=== PATIENT | female | born 1955 | race Caucasian/White ===

== ENCOUNTER 2020-12-01 16:55 | Emergency (ER) | payer MEDICARE, BC ==
--- NOTE | 2020-12-01 17:04 | EDM.PDOC ---
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 Home Meds: Home Meds Losartan/Hydrochlorothiazide [Losartan-HCTZ 100-25 MG] 1 tab PO DAILY 12/01/20 [History] dilTIAZem HCL [Cartia Xt] 120 mg PO DAILY 12/01/20 [History] glipiZIDE [Glipizide ER] 10 mg PO DAILY 12/01/20 [History] Review of Systems - Review of Systems Review Of Systems: See Below Constitutional: Reports: No Symptoms Eyes: Reports: No Symptoms Ears: Reports: No Symptoms Nose: Reports: No Symptoms Mouth/Throat: Reports: No Symptoms Respiratory: Reports: No Symptoms Cardiovascular: Reports: No Symptoms GI/Abdominal: Reports: No Symptoms Genitourinary: Reports: No Symptoms Musculoskeletal: Reports: Foot Pain, Joint Swelling Skin: Reports: No Symptoms Neurological: Reports: No Symptoms Psychiatric: Reports: No Symptoms ED EXAM, GENERAL - Physical Exam Exam: See Below Exam Limited By: No Limitations General Appearance: Alert, WD/WN Respiratory/Chest: No Accessory Muscle Use Extremities: Other (1+ swell and 1+ tender over 5th MT head with no ecchymosis, mild tender over L lateral malleolus, deltoid lig with no swell and no tenderness, skin intact) Departure - Departure Time of Disposition: 17:49 Disposition: Home, Self-Care 01 Condition: Good Clinical Impression: Sprain of left ankle Fracture of metatarsal of left foot, closed Qualifiers: Encounter type: initial encounter Metatarsal bone: fifth Fracture alignment: nondisplaced Qualified Code(s): S92.355A - Nondisplaced fracture of fifth metatarsal bone, left foot, initial encounter for closed fracture - Discharge Information *PRESCRIPTION DRUG MONITORING PROGRAM REVIEWED*: Not Applicable *COPY OF PRESCRIPTION DRUG MONITORING REPORT IN PATIENT JOEY: Not Applicable Instructions: Metatarsal Fracture, Ankle Sprain Additional Instructions: No weight bearing until cleared by your physician to do so. Keep splint clean and dry. Use crutches, wheelchair or knee stroller as needed. For pain, take acetaminophen 500 mg 2 tabs 4 times a day for 5 days, longer if needed. For pain, take ibuprofen 200 mg 3 tabs 4 times a day for 2 days, longer if needed. May take acetaminophen and ibuprofen at the same time. See your doctor next week for further recommendations. Call or return to Emergency Department if you have additional questions or concerns.
--- NOTE | 2020-12-01 17:42 | CR ---
INDICATION: Fall. Pain 5th metatarsal head. LEFT FOOT: Three views of the left foot were obtained 12/01/20 and revealed a transverse fracture through the proximal metaphysis of the 5th metatarsal which appears to be acute with adequate position and alignment suggested. Degenerative changes are noted at the interphalangeal joint of the great toe, 1st metatarsophalangeal joint and DIPJs of the 2nd, 3rd, and to a minimal extent, 4th left toes. Large plantar and small posterior calcaneal spurs are noted. IMPRESSION: Acute finding of fracture of the proximal metaphysis of the 5th metatarsal. There is slight distraction and offset with probable adequate position and alignment. INDICATION: Pain laterally. LEFT ANKLE: Frontal, lateral and oblique views of the left ankle were obtained 12/01/20 and revealed findings compatible with mild osteoarthritis. The ankle mortise otherwise appeared to be intact without an acute fracture or dislocation identified, except at the proximal metaphysis of the 5th metatarsal as noted above. MTDD
[2020-12-01 19:01] VITALS: BP 118/60; PULSE 78
== END 2020-12-01 18:45 | disposition home or self-care (01) ==
LOC: FB.ED 16:55
DX: S92.355A Nondisplaced fracture of fifth metatarsal bone, left foot, initial encounter for closed fracture (principal); S93.402A Sprain of unspecified ligament of left ankle, initial encounter; W01.0XXA Fall on same level from slipping, tripping and stumbling without subsequent striking against object, initial encounter; Y92.009 Unspecified place in unspecified non-institutional (private) residence as the place of occurrence of the external cause
CPT/HCPCS: 73610-LT; 73630-LT; 99283; 99283-25

== ENCOUNTER 2025-03-15 07:46 | Day surgery (SDC) | payer BC, MEDICARE ==
[~2025-03-15 07:46] MED LIST: Sodium Chloride 0.9% 10 ML Syringe FLUSH PRN
[2025-03-15] MEDS ORDERED: Midazolam 1 MG/ML 2 ML SDV IV ONE (07:47)
[2025-03-15] MEDS ORDERED: fentaNYL 100 MCG/2 ML SDV IV ONE (07:47)
[2025-03-15] MEDS: Lactated Ringers 1,000 ML IV PRN (08:40)
[2025-03-15] MEDS: acetaZOLAMIDE 500 MG Cap.ER PO ONE (09:44)
== END 2025-03-15 09:53 | disposition home or self-care (01) ==
LOC: FB.SDS 07:46
PROVIDERS: ATTEND Ophthalmology
DX: E11.36 Type 2 diabetes mellitus with diabetic cataract (principal); H25.813 Combined forms of age-related cataract, bilateral; H04.123 Dry eye syndrome of bilateral lacrimal glands; H43.811 Vitreous degeneration, right eye; H52.13 Myopia, bilateral; K21.9 Gastro-esophageal reflux disease without esophagitis; E78.2 Mixed hyperlipidemia; I10 Essential (primary) hypertension; E66.01 Morbid (severe) obesity due to excess calories; Z68.33 Body mass index [BMI] 33.0-33.9, adult
CPT/HCPCS: 66984; 82947; A9270; J2250; J3010; J7120; V2632; 00142